=== PATIENT | female | born 1995 ===

== ENCOUNTER 2024-03-22 01:47 | Inpatient (IN) | payer OTHER ==
[~2024-03-22] VITALS: Ht 152.4 cm; Wt 80.7 kg
[2024-03-22] VITALS (11 sets, daily range): BP systolic 104–138; BP diastolic 52–84
[~2024-03-22 01:47] MED LIST: IBU800 MG PO
[2024-03-22] MEDS ORDERED: RINGERS SOLUTION,LACTATED 1,000 ML IV SCH (02:00)
[2024-03-22] MEDS ORDERED: PRENATABS RX T1 EACH PO (02:33)
[2024-03-22 02:47] LABS: HEMATOCRIT 34.9 % (36.0-45.00); HEMOGLOBIN 11.8 g/dL (12.0-15.00); INR < 0.93; MEAN CELL VOLUME 89.2 fL (80.00-100.00); MEAN CORPUSCULAR HEMOGLOBIN 30.2 pg (27.00-32.0); MEAN CORPUSCULAR HGB CONC 33.8 g/dl (32.0-36.0); PARTIAL THROMBOPLASTIN TIME 29.3 SECONDS (22.0-34.0); PLATELET COUNT 239 K/uL (150-450); RED BLOOD COUNT 3.91 M/uL (4.00-6.00); RED CELL DISTRIBUTION WIDTH 14.4 % (11.5-14.5)
[2024-03-22 02:53] LABS: ALBUMIN 2.7 gm/dL (3.4-5.0); BILIRUBIN TOTAL 0.12 mg/dL (0.3-1.2); CALCIUM 9.5 mg/dL (8.5-10.1); CREATININE SERUM 0.56 mg/dL (0.55-1.02); GFR 127.11; GLOBULINA 3.7 G/DL (2.4-3.5); POTASSIUM 3.97 mEq/L (3.5-5.1); TOTAL PROTEIN 6.4 gm/dL (6.4-8.2)
[2024-03-22] MEDS ORDERED: OXYTOCIN 20 UNITS/500ML RL PIGGYBAG IV SCH (08:00)
[2024-03-22] MEDS ORDERED: OXYTOCIN 500 ML IV SCH (08:00)
[2024-03-22] MEDS ORDERED: MORPHINE SULFATE 4 MG/ML VIAL IV STA (11:48)
[2024-03-22] MEDS ORDERED: CHLORHEXIDINE GLUCONATE 120 ML BOTTLE TP SCH (16:30)
[2024-03-22] MEDS ORDERED: OxyCODONE HCL/APAP UD (PERCOCET) PO PRN (16:30)
[2024-03-22] MEDS ORDERED: OXYTOCIN 1,000 ML IV SCH (16:30)
[2024-03-22] MEDS ORDERED: DOCUSATE SODIUM 100MG CAP PO SCH (17:00)
[2024-03-22] MEDS ORDERED: ERYTHROMYCIN BASE OPHT 1GM EACH TUBE OP ONE (17:00)
[2024-03-22] MEDS ORDERED: LIDOCAINE HCL 1% 10ML VIAL PERCUT ONE ×2 (17:00)
[2024-03-22] MEDS ORDERED: KETOROLAC TROMETHAMINE 10 MG TABLET PO SCH (18:00)
[2024-03-23 00:56] VITALS: BP 109/64
[2024-03-23 05:54] VITALS: BP 100/60
[2024-03-23 08:27] VITALS: BP 106/73
[2024-03-23] MEDS ORDERED: PNV,CALCIUM 72/IRON/FOLIC ACID 1 TAB TABLET PO SCH (09:00)
[2024-03-23 16:01] VITALS: BP 109/74
[2024-03-24] VITALS: BP 121/70
[2024-03-24 08:00] VITALS: BP 118/81
== END 2024-03-24 15:29 | disposition home or self-care (01) | DRG 807 ==
LOC: LDR 01:47 → OB/GYN 18:32
PROVIDERS: ADMIT Obstetrics & Gynecology; ATTEND Obstetrics & Gynecology
PROC: 10E0XZZ Delivery of Products of Conception, External Approach (ICD-10-PCS; principal; 2024-03-22)
PROC: 0KQM0ZZ Repair Perineum Muscle, Open Approach (ICD-10-PCS; 2024-03-22)
PROC: 4A1HXCZ Monitoring of Products of Conception, Cardiac Rate, External Approach (ICD-10-PCS; 2024-03-22)
DX: O70.1 Second degree perineal laceration during delivery (principal); Z37.0 Single live birth; Z3A.37 37 weeks gestation of pregnancy; Z20.822 Contact with and (suspected) exposure to COVID-19